=== PATIENT | female | born 1945 | race Caucasian/White ===

== ENCOUNTER 2020-12-23 15:26 | Inpatient (IN) | payer MEDICARE, BC ==
[~2020-12-23] VITALS: Ht 167.6 cm; Wt 80.8 kg
[2020-12-23] MEDS ORDERED: IV NORMAL SALINE 1,000ML 1,000 ML IV SCH (16:00)
[2020-12-23] MEDS ORDERED: IV NORMAL SALINE 1,000ML 1,000 ML IV ONE (16:00)
--- NOTE | 2020-12-23 16:04 | RAD ---
EXAM: Chest, single view. HISTORY: Shortness of air. COMPARISON: None. FINDINGS: A frontal view of the chest is obtained. There is peripheral predominant interstitial and a lveolar infiltrate within the left greater than right lung. There is no pleural effusion or pneumotho rax. There is a prominent cardiac silhouette. There is a right shoulder arthroplasty. IMPRESSION: Peripheral predominant left right lung interstitial and alveolar infiltrate. Electronically signed by: Thea De Leon MD (12/23/2020 4:01 PM) [id number]
--- NOTE | 2020-12-23 16:07 | EKG ---
[address] [address] Test Date: 2020-12-23 Test Time: 15:32:22 Pat Name: AJIT LAI Department: Room: Gender: F Senior It Specialist: SUSAN : 1945 Requested By: MARICEL AGUILAR Order Number: [id number] Reading MD: Measurements Intervals Aurora Rate: 78 P: 18 IA: 148 QRS: -3 QRSD: 80 T: -29 QT: 386 QTc: 444 Interpretive Statements SINUS RHYTHM LEFTWARD AXIS NO SPECIFIC ECG ABNORMALITIES RI6.02 No previous ECG available for comparison
[2020-12-23 16:12] LABS: BASO % 0 % (0-3); EOS % 0 % (0-3); HEMATOCRIT 39.7 % (36.0-47.0); HEMOGLOBIN 13.3 g/dL (12.0-15.5); LYMPH # 0.5 x10^3/uL (1.0-4.8); LYMPH % 6 % (24-48); MEAN CORPUSCULAR HEMOGLOBIN 31 pg (25-35); MEAN CORPUSCULAR HGB CONC 33 g/dL (31-37); MEAN CORPUSCULAR VOLUME 93 fL (79-100); MONO # 0.2 x10^3/uL (0.0-1.1); MONO % 2 % (0-9); NEUT # 8.3 x10^3uL (1.8-7.7); NEUT % 92 % (31-73); PLATELET COUNT 209 x10^3/uL (140-400); RED BLOOD COUNT 4.26 x10^6/uL (3.50-5.40); RED CELL DISTRIBUTION WIDTH 13.1 % (11.5-14.5)
[2020-12-23] MEDS ORDERED: AZITHROMYCIN 500 MG in IV NORMAL SALINE 250ML 250 ML IV ONE (16:15)
[2020-12-23] MEDS ORDERED: DEXAMETHASONE SOD PHOS 10 MG/ML VIAL. IVP ONE (16:15)
[2020-12-23] MEDS ORDERED: KETOROLAC 15 MG/ML VIAL. IVP ONE (16:15)
[2020-12-23] MEDS ORDERED: IV NORMAL SALINE 50ML 50 ML ONE (16:19)
[2020-12-23] MEDS ORDERED: AZITHROMYCIN 500 MG VIAL. IV ONE (16:19)
[2020-12-23] MEDS ORDERED: IV NORMAL SALINE 250ML 250 ML ONE (16:19)
[2020-12-23] MEDS ORDERED: cefTRIAXone SODIUM 1 GM VIAL ONE (16:19)
--- NOTE | 2020-12-23 16:23 | PHYS DOC ---
Past History Past Medical History: Other Additional Past Medical Histor: COVID (MARICEL AGUILAR DO) Past Surgical History: Hysterectomy Additional Past Surgical Histo: back, R shoulder, and hemorrhoidectomy (MARICEL AGUILAR DO) Alcohol Use: None (MARICEL AGUILAR DO) General Adult EDM: Chief Complaint: SHORTNESS OF BREATH HPI: HPI: 75-year-old female past medical history of chronic pain LBP s/p surgery, right shoulder pain s/p replacement and hysterectomy s/o ovarian cysts/pain), only takes tramadol for medications, presents the ED with complaints of "I'm 75 and I have no appetite, I feel so weak," was diagnosed on December 13 with Covid. Has associated sore throat, productive cough ("I have sputum"), and mild headache. Reports her son and cchedfph-ei-ebq have been treated in the ED in the past week for pneumonia they also have Covid. Patient denies any prior tobacco use or asthma, no known lung disease. No history of heart failure, ACS or CVA. Reports facial swelling and difficulties breathing with onion but has no known medication allergies. Pt requests food and "toradol." Pt not forthcoming with rn-prolonged little/no history and tells me "Jet will fax that information over." I explained how this rarely happens and limits our ability to help-pt provided history. (MARICEL AGUILAR DO) Review of Systems: Review of Systems: Constitutional: Denies fever or chills Eyes: Denies change in visual acuity or eye discharge HENT: Denies rhinorrhea or nasal congestion Respiratory: Denies hemoptysis or shortness of breath Cardiovascular: Denies chest pressure/tightness/heaviness or edema GI: Denies abdominal pain, nausea, vomiting, bloody stools or diarrhea : Denies dysuria or hematuria Musculoskeletal: Denies back pain or joint pain Integument: Denies rash or diaphoresis Neurologic: Denies neck stiffness, focal weakness or sensory changes Endocrine: Denies polyuria or polydipsia Lymphatic: Denies swollen glands Psychiatric: Denies depression or anxiety (MARICEL AGUILAR DO) Current Medications: Current Meds: Current Medications Medications (Trade) Dose Ordered Sig/Anupam Start Time Stop Time Status Last Admin Dose Admin Sodium Chloride 1,000 ml @ 1,000 mls/hr 1X ONCE 12/23/20 16:00 12/23/20 16:59 ([facility]) Allergies: Allergies: Allergies Coded Allergies Type Severity Reaction Last Updated Verified Unable to Assess 12/23/20 No (JOSEMARICEL DO) Physical Exam: PE: Constitutional: Resting comfortably in dark room, no acute distress, flu/fatigue appearing but not toxic appearing HENT: Normocephalic, atraumatic, dry mucous membranes Eyes: EOMI, conjunctiva normal, no discharge. Neck: Normal range of motion, supple, no nuchal rigidity or meningismus Cardiovascular: S1/2 present, regular rhythm, mild tachycardia on arrival of 111 bpm Lungs & Thorax: Speaking in full sentences, bilateral equal chest rise, mild tachypnea with mild labored speech, on 2-3L NC at 96%, Abdomen: soft, no tenderness, no rigidity/guarding/peritonitis Skin: Warm, dry, no erythema, no rash. [] Back: No midline tenderness, no saddle anesthesia, no urinary or bowel retention Extremities: No tenderness, no cyanosis, no lower extremity edema/no unilateral lower extremity edema Neurologic: Alert and oriented X 3, normal motor function, normal sensory function, no focal deficits note-moves all 4 extremities Psychologic: Affec-flat/apathetic, judgement normal, mood -slightly haney/with attitude but suspect 2/2 fatigue/covid/pna infection (JOSEMARICEL DO) Current Patient Data: Labs: Laboratory Tests Test 12/23/20 15:40 POC Venous pH 7.42 (7.32-7.42) POC Venous pCO2 41 mmHg (41-51) POC Venous pO2 21 mmHg (20-40) Venous Blood HCO3 27 mmol/L (24-28) POC Venous O2 Saturation (Nena) 36 % POC FiO2 32 Vital Signs: Vital Signs Date Time Temp Pulse Resp B/P (MAP) Pulse Ox O2 Delivery O2 Flow Rate FiO2 12/23/20 15:26 98.3 90 26 102/73 (83) 96 Nasal Cannula 3.0 ([facility]) EKG: EKG: Sinus rhythm at 78 bpm, left axis deviation, normal intervals, T wave inversion 2, 3 and aVF, no ST elevations or ST depressions, Q-wave aVL ([facility]) Radiology/Procedures: Radiology/Procedures: IMAGING REPORT Signed PATIENT: AJIT LAI JACCOUNT: [id number] : 1945 LOCATION: ER AGE: 75 SEX: F EXAM STATUS: REG ER ORD. PHYSICIAN: MARICEL AGUILAR DO REASON: soa PROCEDURE: PORTABLE CHEST 1V EXAM: Chest, single view. HISTORY: Shortness of air. COMPARISON: None. FINDINGS: A frontal view of the chest is obtained. There is peripheral predominant interstitial and alveolar infiltrate within the left greater than right lung. There is no pleural effusion or pneumothorax. There is a prominent cardiac silhouette. There is a right shoulder arthroplasty. IMPRESSION: Peripheral predominant left right lung interstitial and alveolar infiltrate. Electronically signed by: Thea Perrin MD (12/23/2020 4:01 PM) [id number] DICTATED AND SIGNED BY: THEA PERRIN MD DATE: 12/23/20 160 CC: PCP,NO; MARICEL AGUILAR DO ~MTH0 0 (MARICEL AGUILAR DO) Radiology/Procedures: [place] [address] IMAGING REPORT Signed PATIENT: AJIT LAICOUNT: [id number] : 1945 LOCATION: ER AGE: 75 SEX: F EXAM STATUS: REG ER ORD. PHYSICIAN: MARICEL AGUILAR DO REASON: soa, cough, r/o pe, covid +, 100mls omni 350 PROCEDURE: CT ANGIOGRAPHY CHEST PQRS Compliance Statement: One or more of the following individualized dose reduction techniques were utilized for this examination: 1. Automated exposure control 2. Adjustment of the mA and/or kV according to patient size 3. Use of iterative reconstruction technique CTA CHEST 12/23/2020 5:40 PM INDICATION: Shortness of air, cough. Covid positive COMPARISON: None available TECHNIQUE: Axial CT images of the chest were obtained after the intravenous administration of nonionic contrast. Coronal and sagittal reformats are provided. Maximum intensity projection images of the thoracic vasculature are provided. FINDINGS: Multinodular thyroid goiter. Right paratracheal lymph node measures 7 mm. Precarinal lymph node measures 11 mm (series 5, image 48). Right hilar lymph node measures 1.2 x 1.1 cm. Subcarinal lymph node measures 18 mm (series 5, image 67). Left hilar lymph node measures 10 x 8 mm (series 5, image 63).. The heart size is within normal limits. No significant pericardial effusion. Thorac ic aorta is normal in course and caliber. There is adequate opacification of the pulmonary arterial system. There there are no filling defects within the pulmonary arterial system to suggest acute or chronic pulmonary embolus. Diffuse predominantly alveolar airspace disease identified throughout the lungs. There is bronchial wall thickening compatible with nonspecific bronchitis. More consolidative change at the left lung base most favor subsegmental atelectasis. There are no pleural effusions. No pulmonary vascular congestion or pneumothorax. Visualized portions of the upper abdomen are within normal limits. No suspicious osseous lesions are visualized. IMPRESSION: There is no evidence for acute or chronic pulmonary embolism. Diffuse moderate alveolar airspace disease as may be seen with multifocal pneumonia, recently most commonly seen with COVID positive patients. Differenti al considerations would include alveolar edema or hemorrhage. Borderline mediastinal and hilar lymphadenopathy favors reactive changes. 3 month follow-up chest CT is recommended to ensure resolution. Multinodular thyroid goiter. Electronically signed by: Horacio Vargas MD (12/23/2020 6:14 PM) [facility] DICTATED AND SIGNED BY: HORACIO VARGAS MD DATE: 12/23/201805 CC: PCP,NO; MARICEL AGUILAR DO ~MTH0 0 (NATHALIE GARLAND MD) Heart Score: C/O Chest Pain: No Risk Factors: Risk Factors: DM, Current or recent (<one month) smoker, HTN, HLP, family history of CAD, obesity. Risk Scores: Score 0 - 3: 2.5% MACE over next 6 weeks - Discharge Home Score 4 - 6: 20.3% MACE over next 6 weeks - Admit for Clinical Observation Score 7 - 10: 72.7% MACE over next 6 weeks - Early Invasive Strategies (MARICEL AGUILAR DO) Course & Med Decision Making: Course & Med Decision Making Pertinent Labs and Imaging studies reviewed. (See chart for details) COVID-19 CRITERIA: The patient was evaluated during the global COVID-19 pandemic, and that diagnosis was suspected/considered upon their initial prese ntation. Their evaluation, treatment and testing was consistent with current guidelines for patients who present with complaints or symptoms that may be related to COVID-19. Concern for sepsis secondary to Covid with bilateral left greater than right interstitial opacities likely superimposed pneumonia, requiring 2 L nasal cannula supplemental oxygen. Venous gas CO2 41, bicarb 26, lactic acid 1.4. Inferior T wave inversions on ekg, patient has no active chest pain. Troponin is negative. D-dimer elevated. Will admit for antibiotics, IV fluids and supplemental oxygen. Patient stable at time of admission and agrees with this plan. Patient accepted by Dr. Lopez. Due to shift change CTA of the chest pending - pt has been admitted to Dr. Lopez. Oncoming ed physician signed out to followup CTA chest findings. I have spoken with the patient and/or caregivers. I have explained the patient's condition, diagnosis and treatment plan based on the information available to me at this time. I have answered the patient's and/or caregivers questions and answered any concerns. The patient and/or caregivers have as good an understanding of the patient's diagnosis, condition and treatment plan as can be expected at this point. The patient has been stabilized within the capability of the emergency department. The patient will be transported for further care and management or will be moved to an observation or inpatient service. I have communicated with the staff or medical practitioner taking over this patient's care. (MARICEL AGUILAR DO) Dragon Disclaimer: Dragon Disclaimer: This electronic medical record was generated, in whole or in part, using a voice recognition dictation system. (MARICEL AGUILAR DO) Departure Departure: Impression: Primary Impression: COVID-19 Additional Impressions: Atypical pneumonia Hypoxemia requiring supplemental oxygen Sepsis Disposition: ADMITTED INPT THIS HOSP Admitting Physician: Sasha Lopez (MARICEL AGUILAR DO) Condition: STABLE Referrals: PCP,NO (PCP) MARICEL AGUILAR DO Dec 23, 2020 16:23 NATHALIE GARLAND MD Dec 23, 2020 19:57
[2020-12-23 16:25] LABS: CALCIUM 8.7 mg/dL (8.5-10.1); CREATININE 0.7 mg/dL (0.6-1.0); POTASSIUM 3.5 mmol/L (3.5-5.1)
[2020-12-23 16:35] LABS: ALBUMIN 3.1 g/dL (3.4-5.0); TOTAL BILIRUBIN 0.4 mg/dL (0.2-1.0); TOTAL PROTEIN 6.1 g/dL (6.4-8.2)
[2020-12-23] MEDS ORDERED: CONTRAST GIVEN. MC PRN (17:45)
[2020-12-23] MEDS ORDERED: IOHEXOL 350 MG/ML 100 ML VIAL. IV ONE (17:45)
--- NOTE | 2020-12-23 18:16 | RAD ---
PQRS Compliance Statement: One or more of the following individualized dose reduction techniques were utilized for this examinat ion: 1. Automated exposure control 2. Adjustment of the mA and/or kV according to patient size 3. Use of iterative reconstruction technique CTA CHEST 12/23/2020 5:40 PM INDICATION: Shortness of air, cough. Covid positive COMPARISON: None available TECHNIQUE: Axial CT images of the chest were obtained after the intravenous administration of nonioni c contrast. Coronal and sagittal reformats are provided. Maximum intensity projection images of the t horacic vasculature are provided. FINDINGS: Multinodular thyroid goiter. Right paratracheal lymph node measures 7 mm. Precarinal lymph node measu res 11 mm (series 5, image 48). Right hilar lymph node measures 1.2 x 1.1 cm. Subcarinal lymph node m easures 18 mm (series 5, image 67). Left hilar lymph node measures 10 x 8 mm (series 5, image 63).. T he heart size is within normal limits. No significant pericardial effusion. Thoracic aorta is normal in course and caliber. There is adequate opacification of the pulmonary arterial system. There there are no filling defects within the pulmonary arterial system to suggest acute or chronic pulmonary embolus. Diffuse predominantly alveolar airspace disease identified throughout the lungs. There is bronchial w all thickening compatible with nonspecific bronchitis. More consolidative change at the left lung bas e most favor subsegmental atelectasis. There are no pleural effusions. No pulmonary vascular congesti on or pneumothorax. Visualized portions of the upper abdomen are within normal limits. No suspicious osseous lesions are visualized. IMPRESSION: There is no evidence for acute or chronic pulmonary embolism. Diffuse moderate alveolar airspace disease as may be seen with multifocal pneumonia, recently most co mmonly seen with COVID positive patients. Differential considerations would include alveolar edema or hemorrhage. Borderline mediastinal and hilar lymphadenopathy favors reactive changes. 3 month follow -up chest CT is recommended to ensure resolution. Multinodular thyroid goiter. Electronically signed by: Nemo Martins MD (12/23/2020 6:14 PM) [facility]
[2020-12-23 20:37] VITALS: BP 100/60
[2020-12-23] MEDS ORDERED: LECI400C PO (21:33)
[2020-12-23] MEDS ORDERED: NAPR-695 PO (21:33)
[2020-12-23] MEDS ORDERED: DOXY25TA49 PO (21:33)
[2020-12-23] MEDS ORDERED: DICL100G18 TP (21:33)
[2020-12-23] MEDS ORDERED: TRAM50TA PO (21:33)
[2020-12-23 22:47] LABS: BACTERIA,URINE 0 /HPF (0-FEW); BILIRUBIN,URINE NEG (NEG); CLARITY,URINE CLEAR; COLOR,URINE AMBER; GLUCOSE,URINE NEG (NEG); NITRITE,URINE NEG (NEG); RBC,URINE 0 /HPF (0-2); WBC,URINE 0 /HPF (0-4)
[2020-12-23 23:46] VITALS: BP 101/48
[2020-12-24] MEDS: DICLOFENAC SODIUM 1% TOPICAL GEL 100GM TUBE. TP SCH ×6 (00:30→20:09)
[2020-12-24] MEDS ORDERED: NAPROXEN 375 MG TABLET PO SCH (00:30)
[2020-12-24] MEDS: traMADol 50 MG TABLET PO PRN ×2 (00:59→09:18)
[2020-12-24 08:00] VITALS: BP 119/66
[2020-12-24 11:25] VITALS: BP 109/46
[2020-12-24 15:49] VITALS: BP 109/52
[2020-12-24] MEDS: POTASSIUM CL 20MEQ D5-0.45NACL 1,000 ML IV SCH (17:54)
[2020-12-24] MEDS: AZITHROMYCIN 250 MG TABLET. PO SCH (17:55)
[2020-12-24] MEDS: ENOXAPARIN 40 MG/0.4 ML SYRINGE. SQ SCH (17:55)
[2020-12-24] MEDS: KETOROLAC 30 MG/ML VIAL. IVP PRN ×2 (17:55→21:35)
[2020-12-24] MEDS ORDERED: DEXAMETHASONE SOD PHOS 10 MG/ML VIAL. IV ONE (18:00)
--- NOTE | 2020-12-24 18:58 | HP ---
ADMIT DATE: HISTORY OF PRESENT ILLNESS: The patient is a 75-year-old female patient who presented to the Emergency Room with a complaint of shortness of breath. Apparently, the patient has chronic low back pain, status post surgery; right shoulder pain; status post replacement and hysterectomy. She only takes tramadol for medication. She presented to the Emergency Department for complaints of weakness, anorexia. She apparently was diagnosed on 12/13 with COVID, has associated sore throat, productive cough and mild headache. She reports her son and oqpnpcwo-[id number] have been treated in the Emergency Department in the past week for pneumonia. They also had COVID. The patient denies any prior tobacco use or bronchial asthma. No known lung disease. No history of heart failure, acute coronary syndrome or CVA. She did report facial swelling and difficulty breathing with onion, but has no known medication allergies. She did request food and Toradol. In any case, the patient was extensively investigated in the Emergency Room and has had lab work and imaging studies. Her lab work showed that her white cell count and platelets are normal. Her chemistry was mostly unremarkable, in particular her liver enzymes are normal. Her blood gases ____ venous, showed that her pH was normal as well as pCO2. Her D-dimer was slightly elevated at 0.65, although her PT/INR and aPTT are normal. Urinalysis was essentially unremarkable. She had had a chest x-ray, which showed peripheral predominantly left and right lung interstitial and alveolar infiltrate. CT angio of the chest showed that there is no evidence of acute or chronic pulmonary embolism, diffuse moderate alveolar airspace disease as may be seen with multifocal pneumonia, recently was commonly seen with COVID positive patient. Differential consideration could include alveolar edema and hemorrhage. Borderline mediastinal and hilar lymphadenopathy favors reactive changes. Three months followup chest is recommended to ensure resolution. She has multinodular thyroid goiter. The patient was admitted with diagnosis of COVID-19 pneumonia and acute hypoxic respiratory failure. PAST MEDICAL HISTORY: Essentially unremarkable except for chronic back pain and right shoulder pain. PAST SURGICAL HISTORY: Significant for extensive back surgery, right shoulder replacement, bilateral cataract extraction, total abdominal hysterectomy, bilateral salpingo-oophorectomy, appendectomy and hemorrhoidectomy. ALLERGIES: SHE IS INTOLERANT TO ALL NARCOTICS except tramadol. SHE DOES HAVE SWELLING OF THE FACE SECONDARY TO ONION EXPOSURE. MEDICATIONS: She is currently on following medications: She is on doxylamine succinate, Unisom 25 mg at bedtime. She is on diclofenac sodium 100 grams gel 1 gram topically 4 times a day, naproxen 375 mg at bedtime, tramadol 50 mg every 6 hours and ____ 800 mg twice a day. FAMILY HISTORY: She has a twin brother who has multiple medical problems including atrial fibrillation, prostate cancer and thyroid disease. Her older brother had advanced dementia. Her father of complication of rheumatic fever and valvular heart disease at the age of 81. Mother at age of 93 because of sepsis and recurrent urinary tract infection. SOCIAL HISTORY: She is , has one daughter and a stepson. She does not smoke, drink alcohol or use recreational drugs. REVIEW OF SYSTEMS: As per history of present illness. PHYSICAL EXAMINATION: GENERAL: On arrival to the Emergency Room, the patient was somewhat tachypneic, but there was no pallor, jaundice, cyanosis or thyromegaly. No jugular venous distension. No limb edema. VITAL SIGNS: Her heart rate was 90, blood pressure was 102/73, temperature was 98.3, respiratory rate was 26 and oxygen saturation was 96% on 3 liters of oxygen. HEAD, EYES, EARS, NOSE AND THROAT: Showed normocephalic, atraumatic. NECK: Supple. HEART: Showed normal first and second heart sounds. No gallop, rub or murmur. CHEST: Shows central trachea, equal bilateral chest expansion, air entry, vesicular breath sounds. I could not really appreciate any crepitation or rhonchi anteriorly. She does have bilateral basal crepitation posteriorly. I could not appreciate any rhonchi. ABDOMEN: Distended, soft, nontender. NEUROLOGIC: She is awake, alert, responding appropriately. All cranial nerves intact. She has limited movement of her right shoulder. Otherwise, she is able to ambulate without difficulty. LABORATORY DATA: Her lab work on arrival showed a white cell count 9000, hemoglobin 13.3, hematocrit 39, MCV 93, and platelet count 209,000. Serum sodium was 141, potassium 3.5, chloride 102, bicarbonate 28, anion gap of 11, BUN 22, creatinine 0.7, estimated GFR was 82 mL per minute. Her glucose 121. Lactic acid was 1.7, calcium was 8.7. Total bilirubin, AST, ALT, alkaline phosphatase were normal. Her beta natriuretic peptide was 2050. Total protein was 6.1, albumin was 3.1. Her prothrombin time, INR and aPTT are normal. D-dimer was 0.65. Urinalysis showed the urine was rama, clear with a pH of 6.5, specific gravity 1.005. The urine was positive for trace of protein. The urine was negative for glucose, ketones, trace of blood, negative for nitrite and leukocyte esterase. There are no rbc's, no wbc's, and no bacteria. The chest x-ray showed that the patient has peripheral predominant left and right lung interstitial and alveolar infiltrate. CT angio of the chest showed no evidence of pulmonary emboli. The patient has diffuse moderate alveolar airspace disease, as may be seen with multifocal pneumonia, recently most commonly seen with COVID positive patients. Differential consideration would include alveolar edema or hemorrhage. Borderline mediastinal and hilar lymphadenopathy favors reactive changes. The patient was admitted with sepsis, acute hypoxic respiratory failure, COVID-19 pneumonia. The patient has also chronic back pain and chronic pain in her right shoulder. The patient was treated with azithromycin as well as continued on all her home medications. I will add ceftriaxone for possible superimposed community-acquired pneumonia and add also dexamethasone and Lovenox and monitor her closely. MOISES PEREZ MD DR: RIGOBERTO/chaparrita JOB#: [id number] / [id number]
[2020-12-24 19:15] VITALS: BP 112/67
--- NOTE | 2020-12-24 19:15 | PN ---
DATE: 12/24/2020 SUBJECTIVE: The patient is resting, slightly propped up in bed, continued to complain of recurrent bouts of cough and shortness of breath. Denied any chest pain. PHYSICAL EXAMINATION: GENERAL: When I examined her, she looked somewhat pale, but no jaundice, cyanosis or thyromegaly. No jugular venous distension. No lower limb edema. VITAL SIGNS: Her heart rate was 68, blood pressure was 109/52, temperature was 98.4, respiratory rate was 18, and oxygen saturation was 95% on 4 liters of oxygen by nasal cannula. HEAD, EYES, EARS, NOSE, AND THROAT: Showed normocephalic, atraumatic. NECK: Supple. HEART: Showed normal first and second heart sounds. No gallop, rub, or murmur. CHEST: Shows central trachea, equal bilateral chest expansion, air entry, vesicular sounds. No crepitation or rhonchi anteriorly. She does have bilateral basal crepitation posteriorly. No rhonchi. ABDOMEN: Distended, soft, nontender. NEUROLOGIC: She is awake, alert, responding appropriately. All cranial nerves intact. She moves extremities without difficulty. Movement of her right shoulder is limited; however, she is able to feed herself. LABORATORY DATA: No lab work done this morning. ASSESSMENT: Coronavirus pneumonia, acute hypoxic respiratory failure, atypical pneumonia, and sepsis, has chronic low back pain and chronic pain involving her right shoulder. PLAN: To continue with IV ceftriaxone and Zithromax. Continue with dexamethasone. Continue with Lovenox. Continue with IV fluid. Continue with tramadol for pain control. I discontinued her naproxen and also explained to her that probably the Toradol is not a good idea for people with infection due to coronavirus. MOISES PEREZ MD DR: RIGOBERTO/chaparrita JOB#: [id number] / [id number]
[2020-12-24] MEDS: DOXYLAMINE SUCCINATE 25 MG TABLET PO SCH ×2 (20:08→21:00)
[2020-12-24 23:17] VITALS: BP 93/53
[2020-12-25] MEDS: KETOROLAC 30 MG/ML VIAL. IVP PRN ×3 (00:20→21:07)
[2020-12-25 05:15] VITALS: BP 130/67
[2020-12-25 08:29] LABS: HEMATOCRIT 37.1 % (36.0-47.0); HEMOGLOBIN 12.4 g/dL (12.0-15.5); RED BLOOD COUNT 4.01 x10^6/uL (3.50-5.40); RED CELL DISTRIBUTION WIDTH 13.3 % (11.5-14.5); WHITE BLOOD COUNT 9.8 x10^3/uL (4.0-11.0)
[2020-12-25 08:34] LABS: ALBUMIN 2.5 g/dL (3.4-5.0); ALBUMIN/GLOBULIN RATIO 0.7 (1.0-1.7); CALCIUM 8.6 mg/dL (8.5-10.1); CREATININE 0.6 mg/dL (0.6-1.0); POTASSIUM 3.8 mmol/L (3.5-5.1); TOTAL BILIRUBIN 0.3 mg/dL (0.2-1.0)
[2020-12-25] MEDS: traMADol 50 MG TABLET PO PRN ×2 (08:41→21:06)
[2020-12-25] MEDS: DOCUSATE SODIUM 100 MG CAPSULE PO SCH (08:41)
[2020-12-25] MEDS: DEXAMETHASONE SOD PHOS 10 MG/ML VIAL. IV SCH (08:41)
[2020-12-25] MEDS: AZITHROMYCIN 250 MG TABLET. PO SCH (08:42)
[2020-12-25] MEDS: DICLOFENAC SODIUM 1% TOPICAL GEL 100GM TUBE. TP SCH ×4 (08:42→21:07)
[2020-12-25] MEDS: POTASSIUM CL 20MEQ D5-0.45NACL 1,000 ML IV SCH ×2 (08:42→21:06)
[2020-12-25 11:23] VITALS: BP 129/61
[2020-12-25 15:55] VITALS: BP 125/61
[2020-12-25] MEDS: ENOXAPARIN 40 MG/0.4 ML SYRINGE. SQ SCH (17:05)
[2020-12-25] MEDS ORDERED: ZOLPIDEM 5 MG TABLET. PO SCH (21:00)
[2020-12-25] MEDS: LACTOBACILLUS RHAMNOSUS GG 1 CAPSULE. PO SCH (21:06)
[2020-12-25 21:13] VITALS: BP 119/74
--- NOTE | 2020-12-25 23:27 | PN ---
DATE: 12/25/2020 SUBJECTIVE: The patient is resting slightly propped up in bed, in no apparent distress. She seemed to be feeling slightly better. Cough is much less. She is maintaining her oxygen saturation at 96% on room air. PHYSICAL EXAMINATION: GENERAL: When I examined her, she was pale, but no jaundice, cyanosis or thyromegaly. No jugular venous distention. No lower limb edema. VITAL SIGNS: Her heart rate was 69, blood pressure was 129/61, temperature 98.6, respiratory rate 20, and oxygen saturation was 96%. HEAD, EYES, NOSE, AND THROAT: Normocephalic, atraumatic. NECK: Supple. HEART: Normal first and second heart sounds. No gallop, rub or murmur. CHEST: Clear to auscultation. No crepitation or rhonchi. ABDOMEN: Distended, soft, nontender. NEUROLOGIC: She was awake, alert, responding appropriately. All cranial nerves intact. She moves extremities without difficulty. Her intake over the last 24 hours was 1600, no output was recorded. LABORATORY DATA: Her white cell count was 9800, hemoglobin 12, hematocrit 37, MCV 93, and platelet count 269,000. Her chemistry showed a serum sodium 141, potassium 3.8, chloride 106, bicarbonate 26, anion gap of 9, BUN 22, creatinine 0.6, estimated GFR was 98 mL per minute. Her glucose 165, calcium was 8.6. Total bilirubin, AST, ALT, alkaline phosphatase were normal. Total protein was 6, albumin was 2.5. Her prothrombin time was 10.3, INR 1, aPTT 28 and D-dimer was 0.65. Her blood cultures are still negative. ASSESSMENT: 1. Acute hypoxic respiratory failure. 2. COVID-19 pneumonia. 3. Questionable superimposed community-acquired pneumonia. 4. Chronic back pain. PLAN: To continue with IV ceftriaxone and Zithromax. Continue with dexamethasone. Continue with Lovenox. Continue with IV fluid. I will add fentanyl IV together with Ambien for sleep. MOISES PEREZ MD DR: RIGOBERTO/chaparrita JOB#: [id number] / [id number]
[2020-12-25] MEDS: ONDANSETRON PF 4 MG/2 ML VIAL. IVP PRN (23:40)
[2020-12-26] MEDS: ONDANSETRON PF 4 MG/2 ML VIAL. IVP PRN ×2 (04:37→20:47)
[2020-12-26 05:50] VITALS: BP 122/58
[2020-12-26] MEDS: DOCUSATE SODIUM 100 MG CAPSULE PO SCH (08:24)
[2020-12-26] MEDS: AZITHROMYCIN 250 MG TABLET. PO SCH (08:25)
[2020-12-26] MEDS: LACTOBACILLUS RHAMNOSUS GG 1 CAPSULE. PO SCH ×2 (08:25→20:48)
[2020-12-26] MEDS: DEXAMETHASONE SOD PHOS 10 MG/ML VIAL. IV SCH (08:27)
[2020-12-26] MEDS: DICLOFENAC SODIUM 1% TOPICAL GEL 100GM TUBE. TP SCH ×4 (08:27→20:48)
[2020-12-26] MEDS: POTASSIUM CL 20MEQ D5-0.45NACL 1,000 ML IV SCH (08:30)
[2020-12-26 10:15] LABS: HEMATOCRIT 36.8 % (36.0-47.0); HEMOGLOBIN 12.2 g/dL (12.0-15.5); RED BLOOD COUNT 3.95 x10^6/uL (3.50-5.40); RED CELL DISTRIBUTION WIDTH 13.2 % (11.5-14.5); WHITE BLOOD COUNT 9.4 x10^3/uL (4.0-11.0)
[2020-12-26 10:26] LABS: ALBUMIN 2.2 g/dL (3.4-5.0); ALBUMIN/GLOBULIN RATIO 0.7 (1.0-1.7); CALCIUM 8.2 mg/dL (8.5-10.1); CREATININE 0.7 mg/dL (0.6-1.0); POTASSIUM 4.3 mmol/L (3.5-5.1); TOTAL BILIRUBIN 0.3 mg/dL (0.2-1.0); TOTAL PROTEIN 5.5 g/dL (6.4-8.2)
[2020-12-26] MEDS: ENOXAPARIN 40 MG/0.4 ML SYRINGE. SQ SCH (17:29)
[2020-12-26 18:38] VITALS: BP 132/87
[2020-12-26] MEDS: traMADol 50 MG TABLET PO PRN (20:48)
[2020-12-26] MEDS: TEMAZEPAM 15 MG CAPSULE PO PRN (20:48)
[2020-12-26 22:59] VITALS: BP 131/57
[2020-12-27] MEDS: ONDANSETRON PF 4 MG/2 ML VIAL. IVP PRN (01:30)
[2020-12-27] MEDS: KETOROLAC 30 MG/ML VIAL. IVP PRN ×2 (02:50→13:38)
[2020-12-27] MEDS: POTASSIUM CL 20MEQ D5-0.45NACL 1,000 ML IV SCH ×2 (04:31→12:34)
[2020-12-27 05:32] VITALS: BP 113/68
[2020-12-27] MEDS: DICLOFENAC SODIUM 1% TOPICAL GEL 100GM TUBE. TP SCH ×4 (09:00→20:57)
[2020-12-27] MEDS: AZITHROMYCIN 250 MG TABLET. PO SCH (09:24)
[2020-12-27] MEDS: LACTOBACILLUS RHAMNOSUS GG 1 CAPSULE. PO SCH ×2 (09:24→20:56)
[2020-12-27] MEDS: DOCUSATE SODIUM 100 MG CAPSULE PO SCH (09:24)
[2020-12-27] MEDS: DEXAMETHASONE SOD PHOS 10 MG/ML VIAL. IV SCH (09:25)
[2020-12-27 11:00] VITALS: BP 130/78
[2020-12-27] MEDS ORDERED: oxyCODONE/APAP 5/325 1 TAB TABLET PO PRN (15:30)
--- NOTE | 2020-12-27 16:03 | PN ---
DATE: 12/27/2020 SUBJECTIVE: The patient is sitting comfortably in her recliner, feeling slightly better. She continued to have cough, which is mostly dry. She has also severe back pain and right shoulder pain, much better controlled now. She is on Toradol and IV fentanyl. She has been able to sleep with temazepam. PHYSICAL EXAMINATION: GENERAL: When I examined her this afternoon, she was pale, but no jaundice, cyanosis or thyromegaly. No jugular venous distention. No lower limb edema. VITAL SIGNS: Her heart rate was 71, blood pressure was 130/78, temperature 97.9, respiratory rate was 16, and oxygen saturation was 96% on 4 liters of oxygen. HEAD, EYES, EARS, NOSE AND THROAT: Showed normocephalic, atraumatic. NECK: Supple. HEART: Showed normal first and second heart sounds. No gallop or murmur. CHEST: Shows central trachea, equal bilateral chest expansion, air entry, vesicular sounds. I could not really appreciate any crepitation or rhonchi. ABDOMEN: Distended, soft, nontender. NEUROLOGIC: She is awake, alert, responding appropriately. All cranial nerves intact. She moves extremities without difficulty. Her intake is 1980, no output was recorded. LABORATORY DATA: Her lab work as of yesterday showed a white cell count 9400, hemoglobin 12, hematocrit 36, MCV 93, and platelet count 305,000. Serum sodium 140, potassium 4.3, chloride 107, bicarbonate 27, anion gap of 6, BUN 25, creatinine 0.7, estimated GFR was 82 mL per minute. Her glucose 141, calcium was 8.2. Total bilirubin, AST, ALT, alkaline phosphatase were normal. Total protein 5.5, albumin was 2.2. ASSESSMENT: 1. Acute hypoxic respiratory failure. 2. COVID-19 pneumonia. 3. Questionable superimposed community-acquired pneumonia. 4. Chronic back pain and chronic right shoulder pain. PLAN: The plan is to continue with IV ceftriaxone and Zithromax. Continue with dexamethasone. Continue with Lovenox. Continue with IV fluid. We tried Ambien; however, the patient could not sleep and she did very well with Restoril. The patient's could typically go home tomorrow. MOISES PEREZ MD DR: RIGOBERTO/chaparrita JOB#: [id number] / [id number]
[2020-12-27 16:25] VITALS: BP 130/74
[2020-12-27] MEDS: ENOXAPARIN 40 MG/0.4 ML SYRINGE. SQ SCH (18:04)
[2020-12-27] MEDS: traMADol 50 MG TABLET PO PRN ×2 (18:05→22:47)
[2020-12-27 19:28] VITALS: BP 140/87
[2020-12-27] MEDS: TEMAZEPAM 15 MG CAPSULE PO PRN (20:56)
[2020-12-27 22:46] VITALS: BP 140/68
[2020-12-28] MEDS: POTASSIUM CL 20MEQ D5-0.45NACL 1,000 ML IV SCH (01:15)
[2020-12-28] MEDS: traMADol 50 MG TABLET PO PRN (05:25)
[2020-12-28 05:45] VITALS: BP 138/70
--- NOTE | 2020-12-28 14:51 | DS ---
DATE OF DISCHARGE: 12/28/2020 ATTENDING PHYSICIAN: Dr. Lopez. FINAL DISCHARGE DIAGNOSES: 1. COVID-19 pneumonia. 2. Acute hypoxemic respiratory failure, improved. 3. Chronic low back pain and chronic shoulder pain. HISTORY AND PHYSICAL: This is a 75-year-old female whose whole family came down with COVID infection. She was admitted with symptoms related to COVID infection. She was hypoxemic. CT of the chest showed evidence of bilateral alveolar infiltrate consistent with atypical pneumonia. PHYSICAL EXAMINATION: Please see the dictated note. PERTINENT LABORATORY AND X-RAY STUDIES: A CT angiogram as noted. No blood clot identified. Diffuse alveolar infiltrates. Hemoglobin was 13.3 g/dL with white count of 9000. Chemistry panel, electrolytes, potassium, all within normal range. Creatinine 0.7 mg/dL. Transaminases were normal. BNP was 2000 and cardiac enzymes negative for coronary ischemia. COURSE IN THE HOSPITAL: The patient was admitted and started on supplemental oxygen. She was treated with 5 days of intravenous antibiotics for possible superimposed bacterial pneumonia. She had Decadron and supplemental oxygen was weaned down. On the fifth hospital day, her vital signs showed a blood pressure of 138/70, pulse of 73 and regular. She was afebrile, oxygen saturation adequate on room air. She is discharged home then with 300 mg b.i.d. for 5 more days, Decadron 4 mg daily, Restoril 15 mg at bedtime and Percocet p.r.n. pain. Other home meds include Voltaren gel, and tramadol. She will follow up with her regular PCP. She was discharged in stable condition with explicit instructions and followup care. Total discharge time spent is 39 minutes. JACQUELINE MAY MD DR: HEATHER/chaparrita JOB#: [id number] / [id number] Thea Begum
== END 2020-12-28 09:00 | disposition home health service (06) | DRG 177 ==
LOC: ER 15:26 → 1 SOUTH 17:16
PROVIDERS: ADMIT Internal Medicine; ATTEND Internal Medicine
DX: U07.1 COVID-19 (principal); J96.01 Acute respiratory failure with hypoxia; J12.82 Pneumonia due to coronavirus disease 2019; E04.2 Nontoxic multinodular goiter; G89.29 Other chronic pain; Z96.611 Presence of right artificial shoulder joint; M54.5 Low back pain; Z90.710 Acquired absence of both cervix and uterus; Z98.41 Cataract extraction status, right eye; Z90.722 Acquired absence of ovaries, bilateral; Z98.42 Cataract extraction status, left eye
CPT/HCPCS: 36415; 71045; 71275; 80053; 81001; 82550; 82803; 83605; 83880; 84484; 85025; 85027; 85379; 85610; 85730; 87040; 87426; 93005; 96365; 96366; 96375; J0456; J0696; J1100; J1650; J1885; J2405; J3010; J7050; Q9967; U0003; 97530; 97535; 99285-25; J7030

== ENCOUNTER → 2022-01-15 | Outpatient (CLI) | payer MEDICARE, BC, OTHER ==
[~2022-01-15] MED LIST: DICL100G18 TP; DOXY25TA49 PO; LECI400C PO; NAPR-695 PO; TRAM50TA PO
--- NOTE | 2022-01-23 15:44 | RAD ---
INDICATION: 76 years of age asymptomatic female patient presents for screening mammography. No family history of breast cancer. TECHNIQUE: Full field craniocaudal and mediolateral oblique images of both breasts were obtained usi ng digital technique without tomosynthesis and also analyzed with computer-aided detection software. COMPARISON: Prior mammographic imaging dating back to 04/19/2017. BREAST COMPOSITION: Category C: The breast tissue is heterogeneously dense, which could obscure detec tion of small masses. FINDINGS: Right breast: Asymmetry in the superior breast, 9.7 cm deep to the nipple appreciated on the MLO proj ection. This possibly relates to a stable band of fibroglandular tissue on the CC projection. There i s no architectural distortion or suspicious calcifications. Left breast: Focal asymmetry at the 1-2:00 position, 5 cm deep to the nipple, better appreciated on t he MLO projection. There is no suspicious calcifications or architectural distortion. The visualized axillae are unremarkable. IMPRESSION: 1. Indeterminate asymmetry in the right superior breast, middle/posterior depth junction better appre ciated on the MLO projection. 2. Indeterminate focal asymmetry in the upper inner left breast, anterior depth. RECOMMENDATION: The patient will be contacted to return for additional imaging and a supplemental rep ort will follow. Bilateral diagnostic mammogram with spot compression views. Additional evaluation wi th targeted bilateral breast ultrasound may also be considered, if indicated. BIRADS 0: INCOMPLETE - NEED ADDITIONAL IMAGING EVALUATION AND/OR PRIOR MAMMOGRAMS FOR COMPARISON. This study was interpreted with the benefit of Computerized Aided Detection (CAD). ?Your patient's mammogram demonstrates that she has dense breast tissue (breast density category C or D), which could hide abnormalities, and if she has other risk factors for breast cancer that have be en identified, she might benefit from supplemental screening tests that may be suggested by you as he r ordering physician. Dense breast tissue, in and of itself, is a relatively common condition. Theref ore, this information is not provided to cause undue concern, but rather to raise your awareness and to promote discussion with your patient regarding the presence of other risk factors, in addition to dense breast tissue. Your patient's mammography results will be sent to her. Patient information is entered into the reminder system with a target due date for the next screening mammogram. Mammography is the most sensitive method for finding small breast cancers, but it does not detect the m all and is not a substitute for careful clinical examination. A negative mammogram does not negate a clinically suspicious finding and should not result in delay in biopsying a clinically suspicious a bnormality. "Our facility is accredited by the [employer] Mammography Program." Electronically signed by: Mingo Chavez DO (01/23/2022 3:41 PM) [id number]
== END ==
LOC: MAMMO 14:41
PROVIDERS: ATTEND Family Medicine
DX: Z12.31 Encounter for screening mammogram for malignant neoplasm of breast (principal)
CPT/HCPCS: 77063; 77067